=== PATIENT | female | born 1950 | race Caucasian/White ===

== ENCOUNTER → 2017-05-19 | Outpatient (CLI) | payer MEDICARE, MEDICAID | END | disposition home or self-care (01) | LOC: CFH 12:50 | PROVIDERS: ATTEND Family Medicine | DX: M51.36 Other intervertebral disc degeneration, lumbar region (principal); M48.06 Spinal stenosis, lumbar region; M51.26 Other intervertebral disc displacement, lumbar region | CPT/HCPCS: 72148 ==

== ENCOUNTER → 2017-05-31 | Outpatient (CLI) | payer MEDICARE, MEDICAID | END | disposition home or self-care (01) | LOC: CFH 12:55 | PROVIDERS: ATTEND Registered Nurse Registered Nurse First Assistant | DX: M48.06 Spinal stenosis, lumbar region (principal); M47.895 Other spondylosis, thoracolumbar region; M41.86 Other forms of scoliosis, lumbar region; M25.78 Osteophyte, vertebrae; M47.897 Other spondylosis, lumbosacral region | CPT/HCPCS: 72110 ==

== ENCOUNTER → 2017-06-14 | Outpatient (CLI) | payer MEDICARE, MEDICAID ==
[~2017-06-14] MED LIST: ALBU8.5H8 INH; ALPR0.5T6 PO; ASPI-496 PO; CALC1TAB PO; CELE200C PO; CHOL200024 PO; CYAN1TAB29 PO; ESCI20TA PO; ESTR1TAB15 PO; FLUT16SP NS; HYDR-3307 PO; HYDR25TA6 PO; LACT1CAP37 PO; LEVO88TA4 PO; LOSA100T6 PO; MAGN71.5 PO; METO25TA35 PO; NIAC500T8 PO; PANT40TA5 PO; POTA8TAB6 PO; ROSU5TAB PO; SENN1TAB67 PO; TIZA4TAB PO; VITA150T PO
[2017-06-14 14:15] LABS: HEMATOCRIT 41.9 % (34.6-47.8); HEMOGLOBIN 14.4 g/dL (11.7-16.4); WHITE BLOOD COUNT 5.1 x10^3/uL (3.4-10)
[2017-06-14 14:26] LABS: ASPARTATE AMINO TRANSFERASE 27 U/L (15-37); BLOOD UREA NITROGEN 16 mg/dL (7-18)
== END | disposition home or self-care (01) ==
LOC: STAR 13:07
PROVIDERS: ATTEND Neurological Surgery
DX: Z01.818 Encounter for other preprocedural examination (principal); R79.1 Abnormal coagulation profile
CPT/HCPCS: 36415; 71020; 80053; 81003; 85025; 85610; 85730; 93005

== ENCOUNTER 2017-06-28 05:32 | Inpatient (IN) | payer MEDICARE, MEDICAID ==
[~2017-06-28] VITALS: Ht 170.2 cm; Wt 92.4 kg
[2017-06-28] MEDS ORDERED: LACTATED RINGERS 1,000 ML IV SCH (06:14)
[2017-06-28 06:22] VITALS: BP 126/81
[2017-06-28] MEDS ORDERED: BUPIVACAINE/PF 0.5% ONE (06:46)
[2017-06-28] MEDS ORDERED: EPINEPHRINE 1 MG/ML, 1ML ONE (06:47)
[2017-06-28] MEDS ORDERED: VANCOMYCIN 1,000 MG ONE (06:47)
[2017-06-28] MEDS ORDERED: THROMBIN 5,000 UNIT VIAL TP ONE (06:47)
[2017-06-28] MEDS ORDERED: BACITRACIN OINT 500U/GM, 15 GM ONE (06:47)
[2017-06-28] MEDS ORDERED: BACITRACIN 50,000 UNIT ONE (06:47)
[2017-06-28] MEDS ORDERED: FENTANYL PF 100 MCG/2ML ONE ×2 (07:17→09:08)
[2017-06-28] MEDS ORDERED: HYDROmorphone 2 MG/ML, 1ML ONE (07:17)
[2017-06-28] MEDS ORDERED: MIDAZOLAM 1 MG/ML, 2ML ONE (07:17)
[2017-06-28] MEDS ORDERED: PROPOFOL 10 MG/ML, 20ML ONE (07:18)
[2017-06-28] MEDS ORDERED: ROCURONIUM 10 MG/ML ONE ×2 (07:18→07:30)
[2017-06-28] MEDS ORDERED: SUCCINYLCHOLINE 20 MG/ML, 10ML ONE (07:18)
[2017-06-28] MEDS ORDERED: DEXAMETHASONE 4 MG/ML, 1ML ONE (07:30)
[2017-06-28] MEDS ORDERED: ONDANSETRON 2MG/ML, 2ML ONE (07:30)
[2017-06-28] MEDS ORDERED: CEFAZOLIN 1,000 MG ONE (07:30)
[2017-06-28] MEDS ORDERED: EPHEDRINE 50 MG/ML, 1ML ONE (07:42)
[2017-06-28] MEDS ORDERED: BUPIVACAINE/PF 0.5% INFIL ONE (07:58)
[2017-06-28] MEDS ORDERED: OXYcodone 5 MG/5 ML ORAL.SOL UDC PO PRN (08:00)
[2017-06-28] MEDS ORDERED: METOCLOPRAMIDE 5 MG/ML, 2ML IV PRN (08:00)
[2017-06-28] MEDS ORDERED: hydrALAzine 20 MG/ML, 1ML IV PRN (08:00)
[2017-06-28] MEDS ORDERED: ACETAMINOPHEN 325 MG TABLET PO PRN (08:00)
[2017-06-28] MEDS ORDERED: ONDANSETRON 2MG/ML, 2ML IVPush PRN ×2 (08:00→09:30)
[2017-06-28] MEDS ORDERED: LABETALOL 5MG/ML, 20ML IV PRN (08:00)
[2017-06-28] MEDS ORDERED: HYDROmorphone PCA 30 MG/30 ML ONE (09:08)
[2017-06-28] MEDS ORDERED: ACETAMINOPHEN 650 MG/20.3 ML UDC ONE (09:08)
[2017-06-28] MEDS ORDERED: OXYcodone 5 MG/5 ML ORAL.SOL UDC ONE (09:08)
[2017-06-28] MEDS ORDERED: HYDROmorphone 1 MG/ML, 1ML ONE (09:08)
[2017-06-28] MEDS: FENTANYL PF 100 MCG/2ML IV PRN ×2 (09:15→09:25)
[2017-06-28] MEDS: HYDROmorphone 1 MG/ML, 1ML IV PRN ×2 (09:15→09:24)
[2017-06-28] MEDS ORDERED: MAGNESIUM HYDROXIDE 8%, 30ML UDC PO PRN (09:30)
[2017-06-28] MEDS ORDERED: TIZANIDINE 4MG TABLET PO PRN (09:30)
[2017-06-28] MEDS ORDERED: DIPHENHYDRAMINE 50 MG/ML, 1ML IVPush PRN (09:30)
[2017-06-28] MEDS ORDERED: DIAZEPAM 5 MG TABLET PO PRN (09:30)
[2017-06-28] MEDS ORDERED: ALBUTEROL SULFATE 2.5 MG/3 ML HHN PRN (09:30)
[2017-06-28] MEDS ORDERED: BISACODYL 10 MG SUPP PR PRN (09:30)
[2017-06-28] MEDS ORDERED: morphine SULFATE 10 MG/ML, 1ML IVPush PRN (09:30)
[2017-06-28] MEDS ORDERED: HYDROmorphone PCA 30 MG/30 ML IV PRN (09:30)
[2017-06-28] MEDS ORDERED: MEPERIDINE/PF 100 MG/ML IM PRN (09:30)
[2017-06-28] MEDS ORDERED: PHARMACY MAY ADJ FOR RENAL FX MC PRN (09:30)
[2017-06-28] MEDS ORDERED: PROMETHAZINE 25 MG/ML, 1ML IM PRN (09:30)
[2017-06-28] MEDS: NS + 20MEQ KCL 1,000 ML IV SCH ×2 (09:30→20:01)
[2017-06-28] MEDS ORDERED: PROMETHAZINE 25 MG/ML, 1ML ONE (09:33)
[2017-06-28] MEDS ORDERED: PROMETHAZINE 25 MG/ML, 1ML IV PRN (10:00)
[2017-06-28] MEDS: CEFAZOLIN PMX 1GM/50ML 50 ML IVPB SCH (16:05)
[2017-06-28 20:00] VITALS: BP 108/56
[2017-06-28] MEDS: SODIUM CHLORIDE FLUSH 10ML SYR IVF SCH (20:01)
[2017-06-28] MEDS ORDERED: ATORVASTATIN 10 MG TABLET PO SCH (21:00)
[2017-06-28] MEDS: ALPRAZOLAM MC SCH (22:19)
[2017-06-29] MEDS: CEFAZOLIN PMX 1GM/50ML 50 ML IVPB SCH (00:26)
[2017-06-29 01:07] VITALS: BP 95/52
[2017-06-29] MEDS: HYDROcodone/APAP 10/325 MG TABLET PO PRN ×2 (01:31→05:41)
[2017-06-29] MEDS: NS + 20MEQ KCL 1,000 ML IV SCH ×3 (05:41→23:06)
[2017-06-29] MEDS: ALPRAZOLAM MC SCH ×3 (05:53→20:41)
[2017-06-29 06:47] VITALS: BP 90/57
[2017-06-29] MEDS: LOSARTAN 50MG TABLET PO SCH (09:00)
[2017-06-29] MEDS: FLUTICASONE NASAL SPRAY 16GM NAS SCH (09:00)
[2017-06-29] MEDS: SODIUM CHLORIDE FLUSH 10ML SYR IVF SCH ×2 (09:41→20:54)
[2017-06-29] MEDS: PANTOPROZOLE 40MG TABLET PO SCH (09:42)
[2017-06-29] MEDS: HYDROCHLOROTHIAZIDE 25 MG TABLET PO SCH (09:44)
[2017-06-29] MEDS: ESTRADIOL 1 MG TABLET PO SCH (09:45)
[2017-06-29] MEDS: CITALOPRAM 20 MG TABLET PO SCH (09:45)
[2017-06-29] MEDS: LEVOTHYROXINE 88 MCG TABLET PO SCH (09:45)
[2017-06-29] MEDS: SENNA/DOCUSATE TABLET PO SCH (09:45)
[2017-06-29] MEDS: POTASSIUM CHLORIDE 8 MEQ TABLET.ER PO SCH (09:45)
[2017-06-29] MEDS: OXYcodone/APAP 5/325MG TABLET PO PRN ×3 (09:46→20:54)
[2017-06-29] MEDS: MAGNESIUM CHLORIDE 64 MG TABLET.DR PO SCH (09:46)
[2017-06-29 12:57] VITALS: BP 107/66
[2017-06-29 19:15] VITALS: BP 110/63
[2017-06-29] MEDS: METOPROLOL TARTRATE 25 MG TABLET PO SCH (20:40)
[2017-06-30 00:12] VITALS: BP 91/54
[2017-06-30] MEDS: OXYcodone/APAP 5/325MG TABLET PO PRN ×4 (00:56→14:04)
[2017-06-30 03:54] VITALS: BP 101/62
[2017-06-30] MEDS: ALPRAZOLAM MC SCH (05:12)
[2017-06-30 07:26] VITALS: BP 91/53
[2017-06-30] MEDS: SODIUM CHLORIDE FLUSH 10ML SYR IVF SCH (09:00)
[2017-06-30] MEDS: FLUTICASONE NASAL SPRAY 16GM NAS SCH (09:00)
[2017-06-30] MEDS: MAGNESIUM CHLORIDE 64 MG TABLET.DR PO SCH (09:00)
[2017-06-30] MEDS: CITALOPRAM 20 MG TABLET PO SCH (09:34)
[2017-06-30] MEDS: POTASSIUM CHLORIDE 8 MEQ TABLET.ER PO SCH (09:35)
[2017-06-30] MEDS: HYDROCHLOROTHIAZIDE 25 MG TABLET PO SCH (09:35)
[2017-06-30] MEDS: SENNA/DOCUSATE TABLET PO SCH (09:35)
[2017-06-30] MEDS: ESTRADIOL 1 MG TABLET PO SCH (09:35)
[2017-06-30] MEDS: LOSARTAN 50MG TABLET PO SCH (09:35)
[2017-06-30] MEDS: LEVOTHYROXINE 88 MCG TABLET PO SCH (09:36)
[2017-06-30] MEDS: PANTOPROZOLE 40MG TABLET PO SCH (09:36)
[2017-06-30] MEDS: METOPROLOL TARTRATE 25 MG TABLET PO SCH (09:37)
[2017-06-30] MEDS ORDERED: OXYC-302 PO (10:42)
[2017-06-30] MEDS ORDERED: TIZA4CAP2 PO (10:43)
[2017-06-30] MEDS: NS + 20MEQ KCL 1,000 ML IV SCH (11:30)
[2017-06-30 13:38] VITALS: BP 115/71
== END 2017-06-30 15:25 | disposition home or self-care (01) | DRG 515 ==
LOC: OUT 05:32 → ORIP 09:04 → 4NOR 11:00 → OBSVTOIN 06-29 10:14
PROVIDERS: ADMIT Neurological Surgery; ATTEND Neurological Surgery
PROC: 01NB0ZZ Release Lumbar Nerve, Open Approach (ICD-10-PCS; principal; 2017-06-28 07:30)
DX: M48.062 Spinal stenosis, lumbar region with neurogenic claudication (principal); J96.20 Acute and chronic respiratory failure, unspecified whether with hypoxia or hypercapnia; F41.8 Other specified anxiety disorders; I10 Essential (primary) hypertension; J45.909 Unspecified asthma, uncomplicated; M81.0 Age-related osteoporosis without current pathological fracture; Z90.710 Acquired absence of both cervix and uterus; Z88.2 Allergy status to sulfonamides; Z88.8 Allergy status to other drugs, medicaments and biological substances
CPT/HCPCS: 72100; G0378; J0171; J0690; J1100; J1170; J2250; J2405; J2550; J2704; J3010; J3370; J3480; J3490; J0330; J7120

== ENCOUNTER → 2018-10-03 | Outpatient (CLI) | payer MEDICARE, MEDICAID ==
[~2018-10-03] MED LIST changes: +LOSA100T14 PO; -LOSA100T6 PO; +OXYC-302 PO; +TIZA4CAP2 PO
== END | disposition home or self-care (01) ==
LOC: CFH 10:22
PROVIDERS: ATTEND Family Medicine
DX: M51.36 Other intervertebral disc degeneration, lumbar region (principal); R94.5 Abnormal results of liver function studies; M41.86 Other forms of scoliosis, lumbar region; M48.061 Spinal stenosis, lumbar region without neurogenic claudication
CPT/HCPCS: 72100; 76700

== ENCOUNTER → 2018-12-28 | Outpatient (CLI) | payer MEDICARE, MEDICAID | END | disposition home or self-care (01) | LOC: CFH 13:08 | PROVIDERS: ATTEND Family Medicine | DX: Z12.31 Encounter for screening mammogram for malignant neoplasm of breast (principal); M85.88 Other specified disorders of bone density and structure, other site; N95.9 Unspecified menopausal and perimenopausal disorder; R92.2 Inconclusive mammogram | CPT/HCPCS: 77063; 77080; 77067 ==

== ENCOUNTER 2019-04-15 14:19 | Outpatient (CLI) | payer MEDICARE, MEDICAID | END 2019-04-15 23:59 | disposition home or self-care (01) | LOC: CFH 14:19 | PROVIDERS: ATTEND Family Medicine | DX: M65.252 Calcific tendinitis, left thigh (principal) ==